=== PATIENT | female | born 1990 | race Caucasian/White ===

== ENCOUNTER 2016-12-23 18:34 | Emergency (ER) | payer OTHER ==
[~2016-12-23] VITALS: Ht 152.4 cm; Wt 58.1 kg
[2016-12-23] MEDS ORDERED: TOPA200T6 PO ×2 (18:42→21:06)
[2016-12-23] MEDS ORDERED: TRIL150T PO ×3 (18:42→21:20)
[2016-12-23] MEDS ORDERED: TOPIRAMATE (TopAMAX) 100 MG TAB PO ONE (21:00)
[2016-12-23] MEDS ORDERED: OXcarbazepine 150 MG TAB PO ONE ×2 (21:00→21:30)
[2016-12-23 21:20] VITALS: BP 126/83
== END 2016-12-23 21:41 | disposition home or self-care (01) ==
LOC: M ED 20:23
DX: Z76.0 Encounter for issue of repeat prescription (principal); G40.909 Epilepsy, unspecified, not intractable, without status epilepticus

== ENCOUNTER → 2017-05-24 | Outpatient (CLI) | payer OTHER ==
[~2017-05-24] MED LIST: TOPA200T7 PO; TRIL150T PO
[2017-05-24 16:05] LABS: ALBUMIN 4.4 GM/DL (3.2-5.2); ALBUMIN/GLOBULIN RATIO 1.02 (1.00-1.93); ALKALINE PHOSPHATASE 74 U/L (45-117); ALT/SGPT 35 U/L (12-78); ANION GAP 9 MEQ/L (8-16); AST/SGOT 52 U/L (15-37); BASO % 0.3 % (0.0-1.0); BILIRUBIN,TOTAL 0.4 MG/DL (0.2-1.0); BLOOD UREA NITROGEN 3 MG/DL (7-18); CALCIUM LEVEL 10.4 MG/DL (8.5-10.1); CARBON DIOXIDE LEVEL 23 MEQ/L (21-32); CHLORIDE LEVEL 100 MEQ/L (98-107); CREATININE FOR GFR 0.58 MG/DL (0.55-1.02); GLOMERULAR FILTRATION RATE > 60.0 (>60); GLUCOSE, FASTING 88 MG/DL (70-105); LYMPH # 1.1 K/mm3 (1.5-6.5); LYMPH % 20.2 % (24.0-44.0); MEAN CORPUSCULAR HEMOGLOBIN 29.5 pg (27.0-33.0); MEAN CORPUSCULAR HGB CONC 32.7 g/dl (32.0-36.5); MEAN CORPUSCULAR VOLUME 90.2 fl (80.0-96.0); MONO # 0.2 K/mm3 (0.0-0.8); MONO % 3.7 % (0.0-5.0); NEUTROPHILS % 74.2 % (36.0-66.0); POTASSIUM SERUM 4.3 MEQ/L (3.5-5.1); RED CELL DISTRIBUTION WIDTH 17.8 % (11.5-14.5); SODIUM LEVEL 132 MEQ/L (136-145); TOTAL PROTEIN 8.7 GM/DL (6.4-8.2); WHITE BLOOD COUNT 5.4 K/mm3 (4.0-10.0)
[2017-05-28 00:06] LABS: TOPIRAMATE LEVEL 11.4 ug/mL (2.0-25.0)
== END ==
LOC: M LAB 14:28
PROVIDERS: ATTEND Nurse Practitioner Family
DX: G40.309 Generalized idiopathic epilepsy and epileptic syndromes, not intractable, without status epilepticus (principal)

== ENCOUNTER → 2019-02-15 | Outpatient (REF) | payer OTHER ==
[2019-02-15 20:06] LABS: CHLAMYDIA DNA AMPLIFICATION NEGATIVE (NEGATIVE); GC DNA AMPLIFICATION NEGATIVE (NEGATIVE)
== END ==
LOC: M LAB REF 16:55
PROVIDERS: ATTEND Physician Assistant Medical
DX: Z11.3 Encounter for screening for infections with a predominantly sexual mode of transmission (principal)

== ENCOUNTER → 2019-08-01 | Outpatient (REF) | payer OTHER ==
[2019-08-01 21:53] LABS: INFLUENZA A AMPLIFICATION NEGATIVE (NEGATIVE); INFLUENZA B AMPLIFICATION NEGATIVE (NEGATIVE)
== END ==
LOC: M LAB REF 10:22
PROVIDERS: ATTEND Physician Assistant Medical
DX: J11.1 Influenza due to unidentified influenza virus with other respiratory manifestations (principal)

== ENCOUNTER → 2019-08-23 | Outpatient (CLI) | payer OTHER ==
[2019-08-23 10:48] LABS: HEMATOCRIT 36.6 % (36.0-47.0); MEAN CORPUSCULAR HEMOGLOBIN 31.9 pg (27.0-33.0); MEAN CORPUSCULAR HGB CONC 32.8 g/dl (32.0-36.5); MEAN CORPUSCULAR VOLUME 97.3 fl (80.0-96.0); PLATELET COUNT, AUTOMATED 244 10^3/uL (150-450); RED BLOOD COUNT 3.76 10^6/uL (4.00-5.40); WHITE BLOOD COUNT 4.5 10^3/uL (4.0-10.0)
[2019-08-23 11:25] LABS: ALT/SGPT 33 U/L (12-78); BILIRUBIN,TOTAL 0.5 MG/DL (0.2-1.0); BLOOD UREA NITROGEN 5 MG/DL (7-18); CALCIUM LEVEL 8.4 MG/DL (8.5-10.1); CARBON DIOXIDE LEVEL 20 MEQ/L (21-32); CHLORIDE LEVEL 108 MEQ/L (98-107); CREATININE FOR GFR 0.67 MG/DL (0.55-1.30); GLOMERULAR FILTRATION RATE > 60.0 (>60); GLUCOSE, FASTING 85 MG/DL (70-100); POTASSIUM SERUM 3.7 MEQ/L (3.5-5.1); SODIUM LEVEL 134 MEQ/L (136-145); TOTAL PROTEIN 8.1 GM/DL (6.4-8.2)
[2019-08-26 00:06] LABS: OXCARBAZEPINE 14 ug/mL (10-35); TOPIRAMATE LEVEL 11.8 ug/mL (2.0-25.0)
== END ==
LOC: M LAB 09:46
PROVIDERS: ATTEND Nurse Practitioner Family
DX: G40.309 Generalized idiopathic epilepsy and epileptic syndromes, not intractable, without status epilepticus (principal)

== ENCOUNTER → 2019-08-23 | Outpatient (CLI) | payer OTHER ==
--- NOTE | 2019-08-23 10:28 | REP ---
ULTRASOUND ABDOMEN: Real-time sonographic evaluation of the abdomen performed. Gallbladder demonstrates no evidence of intraluminal sludge or calculi, wall thickening or pericholecystic fluid. There is no intrahepatic or extrahepatic biliary dilatation, common bile duct measuring 5.0 mm. Liver and pancreas demonstrate homogeneous echotexture with no gross mass. Spleen is normal in size with no intrinsic abnormality, length is 8.7 cm. Kidneys are normal in size and echotexture, right kidney measuring 11.6 x 4.6 x 3.9 cm and left kidney 11.4 x 4.5 x 5.3 cm. There is no renal mass or hydronephrosis. No definite renal stones are seen. Abdominal aorta is normal in caliber with no aneurysm, measuring 1.5 to 1.6 cm in AP dimension. There is no ascites. IMPRESSION: Essentially negative abdominal ultrasound. Electronically Signed by Kelton Diggs MD 08/24/2019 10:34 A
[2019-08-23 10:46] LABS: URINE PREG TEST NEGATIVE (NEGATIVE)
[2019-08-23 10:55] LABS: BASO % 0.7 % (0.0-1.0); EOS % 0.2 % (0.0-3.0); HEMATOCRIT 37.6 % (36.0-47.0); HEMOGLOBIN 12.1 g/dl (12.0-15.5); LYMPH # 1.3 10^3/uL (1.5-5.0); LYMPH % 28.5 % (24.0-44.0); MEAN CORPUSCULAR HEMOGLOBIN 31.9 pg (27.0-33.0); MEAN CORPUSCULAR HGB CONC 32.2 g/dl (32.0-36.5); MEAN CORPUSCULAR VOLUME 99.2 fl (80.0-96.0); MONO # 0.4 10^3/uL (0.0-0.8); MONO % 8.8 % (0.0-5.0); NEUTROPHILS # 2.8 10^3/uL (1.5-8.5); NEUTROPHILS % 60.9 % (36.0-66.0); PLATELET COUNT, AUTOMATED 256 10^3/uL (150-450); RED BLOOD COUNT 3.79 10^6/uL (4.00-5.40); WHITE BLOOD COUNT 4.5 10^3/uL (4.0-10.0)
[2019-08-23 10:55] LABS: AMORPHOUS SEDIMENT SMALL (NEGATIVE); APPEARANCE, URINE CLEAR (CLEAR); BACTERIA, URINE AUTO NEGATIVE (NEGATIVE); BILIRUBIN, URINE AUTO NEGATIVE (NEGATIVE); BLOOD, URINE BLOOD NEGATIVE (NEGATIVE); COLOR, URINE STRAW (YELLOW); GLUCOSE, URINE (UA) AUTO NEGATIVE (NEGATIVE); KETONE, URINE AUTO NEGATIVE (NEGATIVE); LEUKOCYTE ESTERASE, URINE AUTO NEGATIVE (NEGATIVE); NITRITE, URINE AUTO NEGATIVE (NEGATIVE); PROTEIN, URINE AUTO NEGATIVE (NEGATIVE); RBC, URINE AUTO 1 /HPF (0-3); SPECIFIC GRAVITY URINE AUTO 1.005 (1.002-1.035); SQUAMOUS EPITHELIAL CELL UR AU 1 /HPF (0-6); UROBILINOGEN, URINE AUTO 0.2 mg/dL (0.0-2.0); WBC, URINE AUTO 0 /HPF (0-3)
[2019-08-23 11:15] LABS: HEMOGLOBIN A1c 4.9 %
[2019-08-23 11:30] LABS: ALT/SGPT 33 U/L (12-78); AMYLASE 54 U/L (25-115); BILIRUBIN,TOTAL 0.5 MG/DL (0.2-1.0); BLOOD UREA NITROGEN 6 MG/DL (7-18); CALCIUM LEVEL 8.3 MG/DL (8.5-10.1); CARBON DIOXIDE LEVEL 20 MEQ/L (21-32); CHLORIDE LEVEL 110 MEQ/L (98-107); CHOLESTEROL LEVEL 154 MG/DL (<200); CHOLESTEROL RISK RATIO 1.855 (<5); CREATININE FOR GFR 0.69 MG/DL (0.55-1.30); FREE T4 0.77 NG/DL (0.76-1.46); GLOMERULAR FILTRATION RATE > 60.0 (>60); GLUCOSE, FASTING 87 MG/DL (70-100); HDL CHOLESTEROL 83 MG/DL (>40); LDL CHOLESTEROL 48 MG/DL (<100); LIPASE 229 U/L (73-393); NON-HDL-C 71 MG/DL; POTASSIUM SERUM 3.7 MEQ/L (3.5-5.1); SODIUM LEVEL 137 MEQ/L (136-145); TOTAL PROTEIN 8.2 GM/DL (6.4-8.2); TRIGLYCERIDES LEVEL 114 MG/DL (<150)
[2019-08-23 11:32] LABS: TOTAL 25(OH) VITAMIN D 8.9 NG/ML (30.0-100.0)
== END ==
LOC: M RAD 09:10
PROVIDERS: ATTEND Family Medicine
DX: R10.13 Epigastric pain (principal); Z13.228 Encounter for screening for other metabolic disorders

== ENCOUNTER → 2021-07-15 | Outpatient (REF) | payer OTHER | LOC: M LAB REF 21:30 | PROVIDERS: ATTEND Physician Assistant Medical | DX: R50.9 Fever, unspecified (principal) ==